=== PATIENT | female | born 1975 | race Caucasian/White ===

== ENCOUNTER 2017-03-23 13:55 | Emergency (ER) | payer BC ==
[~2017-03-23] VITALS: Ht 170.2 cm; Wt 100.0 kg
[~2017-03-23 13:55] MED LIST: ATENOLOL; NORCO 325 MG-51 TA1 PO; TAMIFLU75 MG PO; ZOFRAN ODT8 MG PO
[2017-03-23 14:41] LABS: EOS # 0.3 (0.04-0.40); EOS % 5.2 % (1.0-5.0); HEMATOCRIT 34.9 % (37.0-47.0); HEMOGLOBIN 10.9 g/dL (12.5-16.0); LYMPH# 2.1 (1.50-4.00); MEAN CELL VOLUME 75 fl (78-100); MEAN CORPUSCULAR HGB CONC 31 g/dL (33-37); MONO # 0.6 (0.20-0.80); NEU # 2.9 (1.40-6.50); PLATELET COUNT 323 K/mm3 (130-400); RED BLOOD COUNT 4.68 M/mm3 (4.10-5.30); RED CELL DISTRIBUTION WIDTH 16.2 % (11.5-14.5); WHITE BLOOD COUNT 5.9 K/mm3 (4.8-10.8)
[2017-03-23 14:53] LABS: ALBUMIN 4.3 g/dL (3.5-5.0); BUN/CREATININE RATIO 16.1 (6.0-26.0); CALCIUM 8.8 mg/dL (8.4-10.2); POTASSIUM 3.7 mmol/L (3.6-5.0); TOTAL BILIRUBIN 0.4 mg/dL (0.2-1.3); TOTAL PROTEIN 7.7 g/dL (6.3-8.2)
[2017-03-23 15:12] LABS: MEAN CORPUSCULAR HEMOGLOBIN 23 pg (27-31)
[2017-03-23 16:57] LABS: D-DIMER 0.45 mg/L FEU (0.15-0.50)
[2017-03-23 17:48] VITALS: BP 158/75
== END 2017-03-23 17:28 | disposition short-term general hospital (02) ==
LOC: ED 13:55
PROVIDERS: Physician Assistant
DX: I42.2 Other hypertrophic cardiomyopathy (principal); Z95.810 Presence of automatic (implantable) cardiac defibrillator

== ENCOUNTER → 2019-04-24 | Outpatient (CLI) | payer BC ==
[2019-04-24 11:28] LABS: EOS # 0.2 (0.04-0.40); EOS % 3.6 % (1.0-5.0); HEMATOCRIT 35.1 % (37.0-47.0); HEMOGLOBIN 10.6 g/dL (12.5-16.0); LYMPH# 1.1 (1.50-4.00); MEAN CELL VOLUME 73 fl (78-100); MEAN CORPUSCULAR HGB CONC 30 g/dL (33-37); MEAN PLATELET VOLUME 9.1 fl (7.4-10.4); MONO # 0.5 (0.20-0.80); NEU # 4.4 (1.40-6.50); PLATELET COUNT 293 K/mm3 (130-400); RED BLOOD COUNT 4.79 M/mm3 (4.10-5.30); RED CELL DISTRIBUTION WIDTH 16.6 % (11.5-14.5); WHITE BLOOD COUNT 6.2 K/mm3 (4.8-10.8)
[2019-04-24 11:37] LABS: MEAN CORPUSCULAR HEMOGLOBIN 22 pg (27-31)
[2019-04-24 11:51] LABS: POTASSIUM 3.6 mmol/L (3.5-5.1)
[2019-04-24 11:52] LABS: CALCIUM 8.2 mg/dL (8.3-10.5)
[2019-04-24 11:54] LABS: TOTAL PROTEIN 7.2 g/dL (6.4-8.3)
[2019-04-24 11:55] LABS: TOTAL BILIRUBIN 0.2 mg/dL (0.2-1.2)
== END ==
LOC: LAB 10:53
PROVIDERS: Nurse Practitioner
DX: B37.2 Candidiasis of skin and nail (principal)

== ENCOUNTER → 2019-05-09 | Outpatient (CLI) | payer BC | LOC: LAB 16:21 | DX: D64.9 Anemia, unspecified (principal) ==

== ENCOUNTER → 2019-05-24 | Outpatient (CLI) | payer BC | LOC: MAMMO 15:58 | DX: Z12.31 Encounter for screening mammogram for malignant neoplasm of breast (principal) ==

== ENCOUNTER → 2019-07-24 | Outpatient (CLI) | payer BC ==
[2019-07-24 17:38] LABS: EOS # 0.3 (0.04-0.40); EOS % 3.1 % (1.0-5.0); HEMOGLOBIN 11.2 g/dL (12.5-16.0); LYMPH# 2.2 (1.50-4.00); MEAN CELL VOLUME 76 fl (78-100); MEAN CORPUSCULAR HGB CONC 31 g/dL (33-37); MEAN PLATELET VOLUME 9.6 fl (7.4-10.4); MONO # 0.7 (0.20-0.80); NEU # 5.1 (1.40-6.50); PLATELET COUNT 310 K/mm3 (130-400); RED BLOOD COUNT 4.75 M/mm3 (4.10-5.30); RED CELL DISTRIBUTION WIDTH 17.6 % (11.5-14.5); WHITE BLOOD COUNT 8.4 K/mm3 (4.8-10.8)
[2019-07-24 17:51] LABS: MEAN CORPUSCULAR HEMOGLOBIN 24 pg (27-31)
== END ==
LOC: LAB 16:58
PROVIDERS: Internal Medicine
DX: D64.9 Anemia, unspecified (principal); B37.2 Candidiasis of skin and nail

== ENCOUNTER → 2019-10-24 | Outpatient (CLI) | payer BC ==
[2019-10-24 15:00] LABS: EOS # 0.3 (0.04-0.40); EOS % 3.9 % (1.0-5.0); HEMATOCRIT 34.8 % (37.0-47.0); HEMOGLOBIN 10.9 g/dL (12.5-16.0); LYMPH# 1.6 (1.50-4.00); MEAN CELL VOLUME 78 fl (78-100); MEAN CORPUSCULAR HGB CONC 31 g/dL (33-37); MEAN PLATELET VOLUME 9.1 fl (7.4-10.4); MONO # 0.5 (0.20-0.80); NEU # 4.1 (1.40-6.50); PLATELET COUNT 303 K/mm3 (130-400); RED BLOOD COUNT 4.46 M/mm3 (4.10-5.30); RED CELL DISTRIBUTION WIDTH 16.4 % (11.5-14.5); WHITE BLOOD COUNT 6.5 K/mm3 (4.8-10.8)
[2019-10-24 15:05] LABS: MEAN CORPUSCULAR HEMOGLOBIN 24 pg (27-31)
[2019-10-24 15:27] LABS: POTASSIUM 3.6 mmol/L (3.5-5.1)
[2019-10-24 15:28] LABS: CALCIUM 8.7 mg/dL (8.3-10.5)
[2019-10-24 15:30] LABS: TOTAL PROTEIN 6.8 g/dL (6.4-8.3)
[2019-10-24 15:31] LABS: TOTAL BILIRUBIN 0.2 mg/dL (0.2-1.2)
[2019-10-24 16:36] LABS: ERYTHROCYTE SEDIMENTATION RATE 29 mm/hr (0-20)
== END ==
LOC: LAB 14:41
PROVIDERS: Internal Medicine
DX: N92.1 Excessive and frequent menstruation with irregular cycle (principal); I42.2 Other hypertrophic cardiomyopathy; D50.9 Iron deficiency anemia, unspecified

== ENCOUNTER 2019-12-06 15:59 | Outpatient (RCR) | payer BC ==
[2019-12-03 15:28] VITALS: BP 127/73
[2019-12-03 16:24] VITALS: BP 128/80
[2019-12-04 15:19] VITALS: BP 128/93
[2019-12-04 16:24] VITALS: BP 123/81
[2019-12-05 16:20] VITALS: BP 111/80
[2019-12-05 17:35] VITALS: BP 110/69
[~2019-12-06] VITALS: Ht 170.2 cm; Wt 96.8 kg
[~2019-12-06 15:59] MED LIST changes: +AMBIEN5 M1 PO; +KLONOPIN 0.5MG0.5 MG PO
[2019-12-06 16:04] VITALS: BP 125/69
== END 2019-12-06 16:29 | disposition still patient (30) ==
LOC: AMSURD 15:59
DX: E61.1 Iron deficiency (principal)
CPT/HCPCS: J2916

== ENCOUNTER 2019-12-09 16:05 | Outpatient (RCR) | payer BC ==
[2019-12-07 16:00] VITALS: BP 128/76
[2019-12-08 16:14] VITALS: BP 128/78
[2019-12-08 17:21] VITALS: BP 107/68
[~2019-12-09] VITALS: Ht 170.2 cm; Wt 96.8 kg
[2019-12-09 16:16] VITALS: BP 125/79
[2019-12-09 17:23] VITALS: BP 133/70
== END 2019-12-09 17:24 | disposition home or self-care (01) ==
LOC: AMSURD 16:05
DX: E61.1 Iron deficiency (principal)
CPT/HCPCS: J2916

== ENCOUNTER → 2020-04-09 | Outpatient (CLI) | payer BC ==
[2020-04-09 17:27] LABS: EOS # 0.2 (0.04-0.40); EOS % 3.4 % (1.0-5.0); HEMATOCRIT 38.4 % (37.0-47.0); HEMOGLOBIN 12.9 g/dL (12.5-16.0); LYMPH# 1.7 (1.50-4.00); MEAN CELL VOLUME 89 fl (78-100); MEAN CORPUSCULAR HEMOGLOBIN 30 pg (27-31); MEAN CORPUSCULAR HGB CONC 34 g/dL (33-37); MONO # 0.5 (0.20-0.80); NEU # 4.3 (1.40-6.50); PLATELET COUNT 272 K/mm3 (130-400); RED BLOOD COUNT 4.32 M/mm3 (4.10-5.30); RED CELL DISTRIBUTION WIDTH 13.5 % (11.5-14.5); WHITE BLOOD COUNT 6.8 K/mm3 (4.8-10.8)
[2020-04-09 17:34] LABS: POTASSIUM 3.9 mmol/L (3.5-5.1)
[2020-04-09 17:38] LABS: TOTAL BILIRUBIN 0.3 mg/dL (0.2-1.2)
[2020-04-09 18:21] LABS: ERYTHROCYTE SEDIMENTATION RATE 12 mm/hr (0-20)
== END ==
LOC: LAB 17:14
PROVIDERS: Internal Medicine
DX: E61.1 Iron deficiency (principal); I42.2 Other hypertrophic cardiomyopathy

== ENCOUNTER → 2020-06-05 | Outpatient (CLI) | payer BC | LOC: RAD 12:50 | DX: M25.511 Pain in right shoulder (principal); G89.29 Other chronic pain ==

== ENCOUNTER → 2020-06-19 | Outpatient (CLI) | payer BC | LOC: MAMMO 15:56 | DX: Z12.31 Encounter for screening mammogram for malignant neoplasm of breast (principal) ==

== ENCOUNTER → 2020-08-01 | Outpatient (CLI) | payer BC ==
[2020-08-01 16:49] LABS: BASO # 0.04 (0.02-0.10); EOS # 0.12 (0.04-0.40); EOS % 1.8 % (1.0-5.0); HEMATOCRIT 39.2 % (37.0-47.0); HEMOGLOBIN 13.4 g/dL (12.5-16.0); LYMPH# 1.67 (1.50-4.00); MEAN CELL VOLUME 89 fl (78-100); MEAN CORPUSCULAR HEMOGLOBIN 31 pg (27-31); MEAN CORPUSCULAR HGB CONC 34 g/dL (33-37); MONO # 0.51 (0.20-0.80); NEU # 4.46 (1.40-6.50); PLATELET COUNT 246 K/mm3 (130-400); RED CELL DISTRIBUTION WIDTH 12.6 % (11.5-14.5); WHITE BLOOD COUNT 6.8 K/mm3 (4.8-10.8)
[2020-08-01 16:58] LABS: POTASSIUM 3.8 mmol/L (3.5-5.1)
[2020-08-01 16:59] LABS: CALCIUM 8.7 mg/dL (8.3-10.5)
[2020-08-01 17:00] LABS: TOTAL PROTEIN 6.8 g/dL (6.4-8.3)
[2020-08-01 17:02] LABS: TOTAL BILIRUBIN 0.2 mg/dL (0.2-1.2)
[2020-08-01 17:07] LABS: MAGNESIUM 2.03 mg/dL (1.60-2.60)
== END ==
LOC: AMSURD 16:39
PROVIDERS: Internal Medicine
DX: Z01.818 Encounter for other preprocedural examination (principal); I45.10 Unspecified right bundle-branch block; Z95.0 Presence of cardiac pacemaker

== ENCOUNTER 2020-09-10 14:00 | Outpatient (RCR) | payer BC | END 2020-12-09 | disposition still patient (30) | LOC: PT | DX: Z98.890 Other specified postprocedural states (principal) ==

== ENCOUNTER → 2021-06-17 | Outpatient (CLI) | payer BC ==
[2021-06-17 11:44] LABS: BASO # 0.03 K/mm3 (0.02-0.10); EOS # 0.17 K/mm3 (0.04-0.40); EOS % 2.3 % (1.0-5.0); HEMATOCRIT 39.6 % (37.0-47.0); HEMOGLOBIN 13.4 g/dL (12.5-16.0); LYMPH# 1.76 K/mm3 (1.50-4.00); MEAN CELL VOLUME 89 fl (78-100); MEAN CORPUSCULAR HEMOGLOBIN 30 pg (27-31); MEAN CORPUSCULAR HGB CONC 34 g/dL (33-37); MONO # 0.47 K/mm3 (0.20-0.80); NEU # 4.88 K/mm3 (1.40-6.50); PLATELET COUNT 273 K/mm3 (130-400); RED BLOOD COUNT 4.44 M/mm3 (4.10-5.30); RED CELL DISTRIBUTION WIDTH 12.8 % (11.5-14.5); WHITE BLOOD COUNT 7.3 K/mm3 (4.8-10.8)
[2021-06-17 11:55] LABS: ALBUMIN 4.3 g/dL (3.5-5.0); POTASSIUM 3.8 mmol/L (3.5-5.1)
[2021-06-17 11:56] LABS: CALCIUM 9.5 mg/dL (8.3-10.5)
[2021-06-17 11:57] LABS: TOTAL PROTEIN 7.2 g/dL (6.4-8.3)
[2021-06-17 11:59] LABS: TOTAL BILIRUBIN 0.4 mg/dL (0.2-1.2)
[2021-06-17 12:03] LABS: MAGNESIUM 1.99 mg/dL (1.60-2.60)
== END ==
LOC: LAB 11:22
PROVIDERS: Internal Medicine
DX: Z12.31 Encounter for screening mammogram for malignant neoplasm of breast (principal); K90.9 Intestinal malabsorption, unspecified; D64.9 Anemia, unspecified; I42.2 Other hypertrophic cardiomyopathy; E61.1 Iron deficiency; G47.01 Insomnia due to medical condition; N92.6 Irregular menstruation, unspecified

== ENCOUNTER 2021-06-20 22:16 | Emergency (ER) | payer OTHER, BC ==
[~2021-06-20] VITALS: Ht 175.3 cm; Wt 104.5 kg
[2021-06-21 00:57] VITALS: BP 134/78
== END 2021-06-21 00:57 | disposition home or self-care (01) ==
LOC: ED 22:16
DX: M79.645 Pain in left finger(s) (principal); M25.532 Pain in left wrist; V40.5XXA Car driver injured in collision with pedestrian or animal in traffic accident, initial encounter; Y92.410 Unspecified street and highway as the place of occurrence of the external cause

== ENCOUNTER → 2021-07-11 | Outpatient (CLI) | payer BC ==
[2021-07-11 10:39] LABS: URINE APPEARANCE HAZY; URINE BILIRUBIN NEGATIVE (NEGATIVE); URINE BLOOD NEGATIVE (NEGATIVE); URINE COLOR YELLOW; URINE GLUCOSE NEGATIVE (NEGATIVE); URINE KETONE NEGATIVE (NEGATIVE); URINE LEUKOCYTE ESTERASE NEGATIVE (NEGATIVE); URINE NITRATE NEGATIVE (NEGATIVE); URINE PROTEIN(semi-quant) NEGATIVE (NEGATIVE); URINE UROBILINOGEN NORMAL (NORMAL); URINE WBC 0-1 /hpf (0-3)
== END ==
LOC: LAB 09:27
PROVIDERS: Internal Medicine
DX: Z01.818 Encounter for other preprocedural examination (principal)

== ENCOUNTER → 2021-11-06 | Outpatient (CLI) | payer BC | LOC: MAMMO 09:15 | DX: Z12.31 Encounter for screening mammogram for malignant neoplasm of breast (principal) ==

== ENCOUNTER → 2022-11-19 | Outpatient (CLI) | payer BC ==
[~2022-11-19] MED LIST changes: +PRILOSEC 20MG20 MG PO
== END ==
LOC: MAMMO 08:30
DX: Z12.31 Encounter for screening mammogram for malignant neoplasm of breast (principal)

== ENCOUNTER → 2023-08-05 | Outpatient (CLI) | payer BC ==
[2023-09-23 10:42] LABS: BASO # 0.03 K/mm3 (0.02-0.10); EOS # 0.23 K/mm3 (0.04-0.40); EOS % 2.6 % (1.0-5.0); HEMATOCRIT 35.4 % (37.0-47.0); HEMOGLOBIN 11.1 g/dL (12.5-16.0); LYMPH# 2.49 K/mm3 (1.50-4.00); MEAN CELL VOLUME 80 fl (78-100); MEAN CORPUSCULAR HEMOGLOBIN 25 pg (27-31); MEAN CORPUSCULAR HGB CONC 31 g/dL (33-37); MEAN PLATELET VOLUME 9.1 fl (7.4-10.4); MONO # 0.78 K/mm3 (0.20-0.80); NEU # 5.46 K/mm3 (1.40-6.50); PLATELET COUNT 290 K/mm3 (130-400); RED BLOOD COUNT 4.42 M/mm3 (4.10-5.30)
== END ==
LOC: LAB 15:03
PROVIDERS: Internal Medicine
DX: K90.9 Intestinal malabsorption, unspecified (principal); D64.9 Anemia, unspecified; E78.2 Mixed hyperlipidemia; R73.9 Hyperglycemia, unspecified

== ENCOUNTER → 2023-09-27 | Day surgery (SDC) | payer BC ==
[~2023-09-27] MED LIST changes: +AMOXICILLIN AND1 TA2 PO; +KLONOPIN 1MG1 MG PO; +Lidocaine PF 2% (20 MG/ML) 5 ML VIAL ONE; +METOPROLOL SUCC25 M1 PO; +OMEPRAZOLE40 MG PO; +PANTOPRAZOLE SO40 MG PO; +PAXLOVID 300-11 EACH PO; +ZOLPIDEM TART10 MG PO
== END | disposition home or self-care (01) ==
LOC: MSO 09:34
DX: K21.9 Gastro-esophageal reflux disease without esophagitis (principal); Z79.899 Other long term (current) drug therapy
CPT/HCPCS: 00731; J2704; J7120

== ENCOUNTER 2023-10-12 18:35 | Emergency (ER) | payer BC ==
[~2023-10-12 18:35] MED LIST changes: -AMOXICILLIN AND1 TA2 PO; -KLONOPIN 1MG1 MG PO; -Lidocaine PF 2% (20 MG/ML) 5 ML VIAL ONE; -METOPROLOL SUCC25 M1 PO; -OMEPRAZOLE40 MG PO; -PANTOPRAZOLE SO40 MG PO; -PAXLOVID 300-11 EACH PO; -ZOLPIDEM TART10 MG PO
[2023-10-12] MEDS ORDERED: METOPROLOL SUCC25 M1 PO (18:46)
[2023-10-12] MEDS ORDERED: PAXLOVID 300-11 EACH PO (18:46)
[2023-10-12] MEDS ORDERED: PANTOPRAZOLE SO40 MG PO (18:46)
[2023-10-12] MEDS ORDERED: OMEPRAZOLE40 MG PO (18:47)
[2023-10-12] MEDS ORDERED: KLONOPIN 1MG1 MG PO (18:47)
[2023-10-12] MEDS ORDERED: ZOLPIDEM TART10 MG PO (18:47)
[2023-10-12 19:27] LABS: BASO # 0.01 K/mm3 (0.02-0.10); HEMATOCRIT 35.3 % (37.0-47.0); HEMOGLOBIN 11.3 g/dL (12.5-16.0); LYMPH# 1.39 K/mm3 (1.50-4.00); MEAN CELL VOLUME 81 fl (78-100); MEAN CORPUSCULAR HEMOGLOBIN 26 pg (27-31); MEAN CORPUSCULAR HGB CONC 32 g/dL (33-37); MEAN PLATELET VOLUME 8.9 fl (7.4-10.4); MONO # 0.86 K/mm3 (0.20-0.80); NEU # 8.04 K/mm3 (1.40-6.50); PLATELET COUNT 228 K/mm3 (130-400); RED BLOOD COUNT 4.34 M/mm3 (4.10-5.30); RED CELL DISTRIBUTION WIDTH 16.5 % (11.5-14.5); WHITE BLOOD COUNT 10.4 K/mm3 (4.8-10.8)
[2023-10-12 19:35] LABS: CALCIUM 9.7 mg/dL (8.3-10.5)
[2023-10-12 19:36] LABS: TOTAL PROTEIN 6.9 g/dL (6.4-8.3)
[2023-10-12 19:38] LABS: TOTAL BILIRUBIN 0.2 mg/dL (0.2-1.2)
[2023-10-12] MEDS ORDERED: Ketorolac 30 MG/ML VIAL IV ONE (19:45)
[2023-10-12] MEDS ORDERED: Iohexol 300 - 100 ML VIAL IV ONE (19:48)
[2023-10-12] MEDS ORDERED: Home HYDROcodone/Acetaminophen 5/325 MG #4 TABS/PACK PO ONE (20:30)
[2023-10-12] MEDS ORDERED: Amoxicillin/Clavulanate K+ 875/125 MG TAB PO ONE (20:30)
[2023-10-12] MEDS ORDERED: AMOXICILLIN AND1 TA2 PO (20:40)
[2023-10-12 20:53] VITALS: BP 120/72
== END 2023-10-12 20:53 | disposition home or self-care (01) ==
LOC: ED 18:35
PROVIDERS: Registered Nurse
DX: K57.92 Diverticulitis of intestine, part unspecified, without perforation or abscess without bleeding (principal)
CPT/HCPCS: J1885; Q9967

== ENCOUNTER → 2023-11-29 | Outpatient (CLI) | payer BC ==
[~2023-11-29] MED LIST changes: +AMOXICILLIN AND1 TA2 PO; +KLONOPIN 1MG1 MG PO; +METOPROLOL SUCC25 M1 PO; +OMEPRAZOLE40 MG PO; +PANTOPRAZOLE SO40 MG PO; +PAXLOVID 300-11 EACH PO; +ZOLPIDEM TART10 MG PO
== END ==
LOC: MAMMO 15:30
DX: Z12.31 Encounter for screening mammogram for malignant neoplasm of breast (principal)